=== PATIENT | female | born 1980 | race Caucasian/White ===

== ENCOUNTER 2017-08-16 03:22 | Observation (INO) | payer BC ==
[~2017-08-16 03:22] MED LIST: ISOVUE-370 76%-LOCM 1 ML ONE
[2017-08-16 03:58] LABS: #Eosinphils 0.2 thou/uL (0.0-0.7); #Lymphocytes 2.3 thou/uL (1.20-3.40); #Monocytes 0.6 thou/uL (0.11-0.59); #Neutrophils 6.7 thou/uL (1.40-6.50); %Basophils 0.1 % (0.0-1.0); %Eosinophils 1.6 % (0.0-10.0); %Lymphocytes 23.2 % (21.0-51.0); %Monocytes 6.4 % (0.0-10.0); Hematocrit 38.8 % (36.0-47.0); Red Blood Cell (RBC) Count 4.58 mill/uL (4.20-5.40); White Blood Cell (WBC) Count 9.7 thou/uL (4.8-10.8)
[2017-08-16 04:22] LABS: Troponin I Less than 0.010 ng/mL (< 0.028)
[2017-08-16 04:58] LABS: ALT (SGPT) 20 U/L (8-55); AST (SGOT) 19 U/L (5-34); Alkaline Phosphatase 80 U/L (40-150); Anion Gap 12 mmol/L (10-20); BUN (Urea Nitrogen) 17 mg/dL (7.0-18.7); Bilirubin, Total 0.2 mg/dL (0.2-1.2); Calc. Creatinine Clearance 0 mL/min (70-130); Calcium 9.1 mg/dL (7.8-10.44); Carbon Dioxide 26 mmol/L (22-29); Chloride 105 mmol/L (98-107); Estimated GFR-MDRD 85; Globulin 2.3 g/dL (2.4-3.5); Lipase 15 U/L (8-78); Protein, Total 6.1 g/dL (6.0-8.3)
[2017-08-16] MEDS ORDERED: Aspirin 325 MG TAB ONE (06:19)
[2017-08-16 07:31] LABS: Troponin I Less than 0.010 ng/mL (< 0.028)
[2017-08-16] MEDS ORDERED: Loperamide HCl 2 MG CAP PO PRN (07:59)
[2017-08-16] MEDS ORDERED: Zolpidem Tartrate 5 MG TAB PO PRN ×2 (07:59→11:01)
[2017-08-16] MEDS ORDERED: Mag-Al 1200 mg/1200 mg/30 ML UDCUP PO PRN (07:59)
[2017-08-16] MEDS ORDERED: HYDROcodone/Acetaminophen 5/325 mg Tablet PO PRN (07:59)
[2017-08-16] MEDS ORDERED: Senokot 8.6 MG TAB PO PRN (07:59)
[2017-08-16] MEDS ORDERED: Milk Of Magnesia 30 ML UDCUP PO PRN (07:59)
[2017-08-16] MEDS ORDERED: Ondansetron HCl/PF 4 MG/2 ML Vial IVP PRN (07:59)
[2017-08-16] MEDS ORDERED: Ondansetron ODT 4 MG TAB PO PRN (07:59)
[2017-08-16] MEDS ORDERED: Acetaminophen 325 MG TAB PO PRN (07:59)
[2017-08-16 08:17] VITALS: BMI 39.4
--- NOTE | 2017-08-16 09:02 | CT ---
PRELIMINARY REPORT/[facility]/EMERGENCY AFTER HOURS PROCEDURE: EXAM: CT Angiography Chest With Intravenous Contrast CLINICAL HISTORY: Pt reports numbness to right arm and leg associated with chest pain. TECHNIQUE: Axial computed tomographic angiography images of the chest with intravenous contrast using CT chest angiograph protocol. Coronal reformatted images were created and reviewed. COMPARISON: No relevant prior studies available. FINDINGS: Pulmonary arteries: Limited bolus in pulmonary arteries. No central embolism. Aorta: No acute findings. No aortic dissection. No thoracic aortic aneurysm. Lungs: No acute findings. No mass. No consolidation. Pleural space: No acute findings. No significant effusion. No pneumothorax. Heart: No acute findings. No cardiomegaly. No significant pericardial effusion. No evidence of RV dy sfunction. Bones/joints: No acute fracture. No dislocation. Soft tissues: No acute findings. Lymph nodes: No acute findings. No enlarged lymph nodes. IMPRESSION: No thoracic aortic aneurysm or dissection. No central pulmonary embolism. No pneumonia, mass, or edema. EXAM: CT Angiography Abdomen With Intravenous Contrast CLINICAL HISTORY: 37 years old, female; Pain; Chest pain; Prior surgery; Patient HX: Er 4; F37 presents w/ cp and CORBETT. 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 Pt reports numbness to right arm and leg asso ciated with cp and CORBETT. Pt has these spells where she wakes up with the cp and CORBETT. Pt reports the cp has resolved. Pt reports photophobia with CORBETT. Pt denies pmh of dm or high cholesterol. Pt rep orts family HX of cardiac disease. TECHNIQUE: Axial computed tomographic angiography images of the abdomen with intravenous contrast. Coronal reformatted images were created and reviewed. COMPARISON: No relevant prior studies available. FINDINGS: Lower thorax: No acute findings. Aorta: No acute findings. No abdominal aortic aneurysm. No dissection. Celiac trunk and mesenteric arteries: No acute findings. No occlusion or significant stenosis. Renal arteries: No acute findings. No occlusion or significant stenosis. Liver: Liver is enlarged at 19.4 cm and demonstrates diffuse fatty infiltration. No solid mass is id entified. Gallbladder and bile ducts: Gallbladder has been removed. No ductal dilation. Pancreas: No acute findings. No ductal dilation. No mass. Spleen: No acute findings. No splenomegaly. Adrenals: No acute findings. No mass. Kidneys and ureters: No acute findings. No hydronephrosis. No solid mass. Stomach and bowel: No acute findings. No obstruction. No mucosal thickening. Intraperitoneal space: No acute findings. No significant fluid collection. No free air. Bones/joints: No acute fracture. No dislocation. Soft tissues: No acute findings. No mass. Lymph nodes: No acute findings. No enlarged lymph nodes. IMPRESSION: No acute findings in the arteries of the abdomen. Enlarged, fatty liver. Cholecystectomy. Thank you for allowing us to participate in the care of your patient. Dictated and Authenticated by: Abdias Hardy MD 08/16/2017 5:47 AM Central Time ([place] \T\ [place]) FINAL REPORT CT CHEST WITH IV CONTRAST AND 3D POST PROCESSING CT ABDOMEN WITH IV CONTRAST AND 3D POST PROCESSING I agree with the preliminary report given by Dr. Abdias Hardy of [facility]. No evidence of thoracic o r abdominal aortic aneurysm or dissection is seen. POS: OFF
[2017-08-16] MEDS: Aspirin 325 MG TAB PO SCH (09:21)
--- NOTE | 2017-08-16 10:08 | RAD ---
PORTABLE CHEST ONE VIEW: 08/16/2017 3:58 a.m. HISTORY: Chest pain. Headache. FINDINGS: Heat size is normal. The lungs are well expanded without focal areas of consolidation, pneumothorax , or pleural effusions. IMPRESSION: No radiographic evidence of acute cardiopulmonary process. POS: OFF
[2017-08-16] MEDS ORDERED: clonazePAM 0.5 MG TAB PO PRN (11:01)
[2017-08-16 11:22] LABS: Troponin I Less than 0.010 ng/mL (< 0.028)
--- NOTE | 2017-08-16 12:00 | SS ---
PRIMARY CARE PHYSICIAN: This patient is from [place] and her primary care physician is in [place], this is city call admission. REASON FOR ADMISSION: Chest pain. HISTORY OF PRESENT ILLNESS: A 37-year-old female who has history of anxiety, depression, and obesit y who came to the emergency room for evaluation of chest pain. Patient reports that she is sufferin g from this type of episode for several months. She describes typical episode starts with chest tsering n which is right-sided versus left-sided randomly happens without any specific aggravating or reliev ing factor, but immediately after chest pain, she feels right arm and right lower extremity paraesth esia. She feels right wrist and right ankle pain and then she experiencing diffuse headache which l asted for an hour or two and then everything subsides by itself. This type of episode is recurrent for the last several months and that is why the patient has seen several times in the emergency room in [place]. Patient reports that nobody has figured it so far why she is getting these symptoms. This patient reports that considering her neck pain, headache, they did MRI of brain and cervical s pine that was also normal. This patient never had a stress test done before, but patient was also s [facility] freight unloader who prescribed her a couple of days of Holter monitoring which she had almost 2 wee ks ago, but she has not received result of Holter monitoring yet from her freight unloader. The patient came to our town because her family lives here and she was scheduled for eye surgery in [place] last week on Friday and coming Friday patient has postoperative followup and that is why loi cooper is in town, but her symptoms started early this morning and that is why she came to the emergency room for evaluation. When I saw this patient at that time, patient did not have any complaint. All symptoms were resolve d. She reports that her primary care physician and freight unloader were planning to do stress test and echocardiography as the next step, and she is interested in doing this before she leaves from [facility] this time. REVIEW OF SYSTEMS: The following complete review of systems was negative, unless otherwise mentione d in the HPI or below: Constitutional: Weight loss or gain, ability to conduct usual activities. Skin: Rash, itching. Eyes: Double vision, pain. ENT/Mouth: Nose bleeding, neck stiffness, pain, tenderness. Cardiovascular: Palpitations, dyspnea on exertion, orthopnea. Respiratory: Shortness of breath, wheezing, cough, hemoptysis, fever or night sweats. Gastrointestinal: Poor appetite, abdominal pain, heartburn, nausea, vomiting, constipation, or diar terry. Genitourinary: Urgency, frequency, dysuria, nocturia. Musculoskeletal: Pain, swelling. Neurologic/Psychiatric: Anxiety, depression. Allergy/Immunologic: Skin rash, bleeding tendency. Please see my HPI for pertinent positive and negative. All other review of systems reviewed and neg ative except as mentioned in the HPI. PAST MEDICAL HISTORY: History of hypertension. The patient was recently started on Bystolic, but a fter taking that medication patient's blood pressure is running low and that is why the patient is k eeping holding that medication and history of nephrolithiasis. PAST SURGICAL HISTORY: Surgery for nephrolithiasis, cholecystectomy, eye surgery, thumb surgery. PAST PSYCHIATRIC HISTORY: Anxiety and depression. SOCIAL HISTORY: The patient is . No history of tobacco, alcohol or illicit drug abuse. FAMILY HISTORY: Positive for coronary artery disease to her mother who had a heart attack by age of 62. Father had ICD and AFIB by age of 50. EMERGENCY ROOM COURSE: The patient is given aspirin. ALLERGIES: PHENERGAN. CURRENT HOME MEDICATION: Clonazepam 0.5 mg q.8 hourly p.r.n., Bystolic 5 mg daily, Celexa 20 mg p.o . daily, Nicole 180 mg p.o. daily, melatonin 5 mg p.o. at bedtime, Ambien 10 mg p.o. at bedtime, ce tirizine 10 mg p.o. daily, aspirin 81 mg p.o. daily, Zaditor ophthalmic drops as prescribed. PHYSICAL EXAMINATION: VITAL SIGNS: On arrival, blood pressure 107/73, pulse 71, respiratory rate 16, temperature 97.8, sa turation 99% on room air, weight 115.6 kilograms. GENERAL: The patient is currently alert, awake, no obvious acute distress. HEAD: Normocephalic, atraumatic. EYES: Pupils round, reactive to light. Extraocular muscles intact. ENT: Oropharynx within normal limits. Moist mucous membranes. No oral lesions, no pharyngeal eryt beverley, no exudate. NECK: Supple, range of motion is normal. No meningeal signs of irritation. LUNGS: Clear to auscultation without any rhonchi or rales. CARDIAC: S1, S2 regular without any murmur. ABDOMEN: Soft, obesity present. Bowel sounds present. Nontender, nondistended. No organomegaly, no mass, no suprapubic tenderness. BACK: Examination unremarkable. No CVA tenderness. EXTREMITIES: Upper extremity passive movements of all joints are normal. Lower extremity, no edema . Good peripheral pulsation. SKIN: No skin rash. HEMATOLOGICAL SYSTEM: No lymphadenopathy. PSYCHIATRIC: Normal affect. IMAGING AND SIGNIFICANT LABORATORY DATA: 1. EKG based on my review reveals normal sinus rhythm, poor R progression. 2. Chest x-ray based on my review, no acute cardiopulmonary process. CT dissection is negative. 3. CBC: WBC 9.7, hemoglobin 12.4, platelets 254. 4. BMP: Sodium 139, potassium 3.8, chloride 105, carbon dioxide 26, BUN 17, creatinine 0.76, gluco se 90, and calcium 9.1. 5. LFT: AST 19, ALT 20, alkaline phosphatase 80, albumin 3.8. Lipase 15. CK 100, CK-MB 1.6, trop onin I less than 0.010 and then repeat one is negative. BNP 14.6. Lipid profile: Triglyceride 184 , cholesterol 144, LDL 66, and HDL 41. ASSESSMENT AND PLAN/IMPRESSION: 1. Chest pain syndrome. This patient has very atypical and sounds like nonanginal and noncardiac p ain. She has vague chest pain which has no relation with food, respiration or activity, along with right upper and lower extremity tingling and numbness sensation with the pain and with headache. Isai chaudhary's chest pain follows all these things, so it is unclear. I am suspecting may be she has under lying anxiety/depression; underlying migraine is also possible, but is not fitting in typical catego ry as well. At this point, patient is interested in going for treadmill stress test which we will d o given her family history of coronary artery disease. We will do 3 sets of cardiac enzymes which w ere negative. We will obtain echocardiography and if the stool test is normal, then we will conside r discharging her home later on today. 2. Morbid obesity with body mass index 39. Dietary education given, weight loss education given. Healthy lifestyle measures discussed with the patient. 3. Anxiety and depression. We will continue Celexa 20 mg p.o. daily, clonazepam 0.5 mg q.8 hourly, and Ambien 10 mg at bedtime p.r.n. 4. Recent eye surgery. The patient will continue Pred Forte eyedrops as instructed. 5. Hypertension, but currently blood pressure running on lower side, so I advised this patient to f tanikalow up with primary care physician. CODE STATUS: The patient is FULL CODE. Patient's is surrogate decision. Disposition plan, pending above-mentioned investigation result. DATE OF ADMISSION: 08/16/2017 DATE OF DISCHARGE: 08/16/2017 DISCHARGE DISPOSITION: Home. PRIMARY DISCHARGE DIAGNOSIS: Chest pain, nonspecific, noncardiac. SECONDARY DISCHARGE DIAGNOSES: Obesity with body mass index 39, hypertension, anxiety and depressio n. PRIMARY PROCEDURE/OPERATION: None. RADIOLOGICAL INVESTIGATION: Chest x-ray normal. CT dissection negative. SIGNIFICANT LABORATORY DATA: CBC normal. BMP normal. LFTs normal. Cardiac enzymes negative and l ipid profile within normal limits. CONTRAINDICATIONS: None. CODE STATUS: FULL CODE. INPATIENT CONSULTANTS: None. ALLERGIES: PHENERGAN. The patient's home medications will be continued on discharge. DISCHARGE PLAN: Post-hospital, patient will follow with primary care physician after going back to [place]. HOSPITAL COURSE: Please see my HPI for further details. The patient is getting treadmill exercise stress test and echocardiography and if that is normal, then we will consider discharging her later on today. The patient was admitted for chest pain workup and all workup came back negative.
[2017-08-16] MEDS: prednisoLONE 1% Ophth Susp 5 ml Bottle EA EYE SCH ×3 (12:52→20:13)
--- NOTE | 2017-08-17 02:23 | PDOC.EVN ---
Event Note - Event Note Event Note: CC; Chest pain and rt side weakness sub: pt chest pain resolved. pe: vITALS STABLE CVS; S1 S2 PRESENT, RRR, NO MURMUR rs: nORMAL EFFORT service department manager: awake, alert, follows commands, strength intact plan: will check cardiac enzymes and ct head to r/o acute etiology.
[2017-08-17 02:44] LABS: Troponin I Less than 0.010 ng/mL (< 0.028)
[2017-08-17 05:14] LABS: Troponin I Less than 0.010 ng/mL (< 0.028)
[2017-08-17 08:08] VITALS: BP 133/71
[2017-08-17 08:10] VITALS: TEMP 97.9
--- NOTE | 2017-08-17 08:22 | DIS ---
DATE OF ADMISSION: 08/16/2017 DATE OF DISCHARGE: 08/17/2017 PRIMARY CARE PHYSICIAN: City call admission, patient from [place], no local M.D. DISCHARGE DIAGNOSES: Atypical chest pain, hypertension, migraine headache, anxiety disorder. DISCHARGE MEDICATIONS: Same as her home medicines, prednisolone acetate eyedrops 1 drop each eye q. i.d., aspirin 81 mg a day, Klonopin 0.5 mg q.8 hours p.r.n., Ambien 10 mg at bedtime, Celexa 20 mg a day, Bystolic 5 mg a day and multiple [id number] medicines. ALLERGIES: Allergies to PHENERGAN. PENDING AT THE TIME OF DISCHARGE: Echocardiogram results. CODE STATUS: FULL. HOSPITAL COURSE: Patient admitted on observation to the emergency room. She has a history of evalu ation for atypical chest pain, seen by a local doctor and back home. She has a history of some righ t lower extremity paraesthesia, which then gets a diffuse headache. Physical examination was really unremarkable, blood pressure 106/58. Cardiac enzymes normal times multiple. Cholesterol studies n ormal. Comprehensive metabolic profile normal. Cholesterol was 144, LDL 66, HDL 41. CBC is unrema rkable. Exercise stress test revealed no evidence of ischemia. CT of the brain revealed no acute a bnormality. In examination of today, she is alert, cooperative, pleasant desirous of being discharg ed. Neurological screening exam is normal including cranial nerves II through XII are intact. Stre ngth symmetric. Pazbra-ssmz-lneuzm symmetric. Cardiac exam revealed no murmurs, gallops. Regular rate and rhythm. First and second heart sounds are normal. Chest was clear. Because her doctor in [place] wanted echocardiogram, she does have an echocardiogram this morning and then will be disch arged. CONSULTATIONS: None. PROCEDURES: None. FOLLOWUP: With PCP in [place].
[2017-08-17 09:19] LABS: Troponin I Less than 0.010 ng/mL (< 0.028)
[2017-08-17] MEDS: prednisoLONE 1% Ophth Susp 5 ml Bottle EA EYE SCH (10:04)
[2017-08-17] MEDS: Aspirin 325 MG TAB PO SCH (10:04)
--- NOTE | 2017-08-17 15:41 | CT ---
PRELIMINARY REPORT/[facility]/EMERGENCY AFTER HOURS PROCEDURE: EXAM: CT Head Without Intravenous Contrast CLINICAL HISTORY: 37 years old, female; Signs and symptoms; Dizziness and weakness, extremity; Right; Patient HX: Pt C /O weakness to rt upper extremity. Pt also C/O dizziness and slight CORBETT. TECHNIQUE: Axial computed tomography images of the head/brain without intravenous contrast. COMPARISON: No relevant prior studies available. FINDINGS: Brain: No acute findings. No hemorrhage. No significant white matter disease. No edema. Ventricles: No acute findings. No ventriculomegaly. Bones/joints: No acute findings. No acute fracture. Soft tissues: No acute findings. Sinuses: Unremarkable as visualized. No acute sinusitis. Mastoid air cells: Unremarkable as visualized. No mastoid effusion. IMPRESSION: No acute intracranial pathology. Thank you for allowing us to participate in the care of your patient. Dictated and Authenticated by: Abdias Hardy MD 08/17/2017 1:55 AM Central Time ([place] \T\ [place]) FINAL REPORT CT BRAIN: HISTORY: A 37-year-old with dizziness. FINDINGS: Noncontrast-enhanced CT images of the brain obtained. The brain is unremarkable. No evidence of intracranial masses, hemorrhages, strokes, or contusions seen. Ventricles are of normal size. I concur with the dictation from [facility]. No significant evidence of intracranial patholo gy is seen. POS: CATHY
--- NOTE | 2017-08-21 14:19 | EKG ---
Test Reason : CHEST PAIN Blood Pressure : / mmHG Vent. Rate : 071 BPM Atrial Rate : 071 BPM P-R Int : 148 ms QRS Dur : 078 ms QT Int : 392 ms P-R-T Axes : 035 005 023 degrees QTc Int : 425 ms Normal sinus rhythm Cannot rule out Anterior infarct , age undetermined Abnormal ECG Confirmed by LEANNE PHILLIPS, RICARDO Huff ([id number]), associate entertainment editor HALLE GONZALEZ ([id number]) on 08/21/2017 2:19:30 PM Referred By: Confirmed By:RICARDO PERDOMO MD
--- NOTE | 2017-08-22 13:45 | STRESS ---
Acquisition Time: 2017-08-16 09:49:10 Total Exercise Time: 00:08:48 Test Indications: CHEST PAIN Medications: Protocol: GAGANDEEP Max HR: 151 BPM 82% of Pred: 182 BPM Max BP: 132/068 mmHG Max Work Load: 10.4 METS RESTING ECG: NORMAL SINUS RHYTHM AT 60 BPM SYMPTOMS: CHEST PAIN NORMAL BP RESPONSE ECTOPY: NONE ECG STRESS: NO SIGNIFICANT CHANGES INTERPRETATION: NO ST CHANGES AT ACHEIVED HR. 85% OF TARGET WAS NOT ACHEIVED MAKING TEST HAVE LOWER SENSITIVITY. Confirmed by POLLO HINTON M.D. ([id number] on 08/22/2017 1:45:00 PM Referred By: MD Edmar JUAREZ Confirmed By:POLLO HINTON M.D.
== END 2017-08-17 12:12 | disposition home or self-care (01) ==
LOC: ERS 03:22 → 2SW 07:47
PROVIDERS: ADMIT Internal Medicine; ATTEND Internal Medicine
DX: R07.89 Other chest pain (principal); I10 Essential (primary) hypertension; F41.9 Anxiety disorder, unspecified; G43.909 Migraine, unspecified, not intractable, without status migrainosus; F32.9 Major depressive disorder, single episode, unspecified; E66.9 Obesity, unspecified; Z68.38 Body mass index [BMI] 38.0-38.9, adult; Z88.8 Allergy status to other drugs, medicaments and biological substances; Z79.82 Long term (current) use of aspirin; Z79.899 Other long term (current) drug therapy; Z79.52 Long term (current) use of systemic steroids; Z90.49 Acquired absence of other specified parts of digestive tract; Z98.890 Other specified postprocedural states; Z82.49 Family history of ischemic heart disease and other diseases of the circulatory system
CPT/HCPCS: 36415; 70450; 71010; 71275; 80053; 80061; 82553; 83690; 83880; 84484; 85025; 93005; 93017; 93306; G0378